=== PATIENT | male | born 1985 | race Caucasian/White ===

== ENCOUNTER 2018-02-20 09:15 | Emergency (ER) | payer OTHER ==
[2018-02-20 09:23] VITALS: BP 125/70; PULSE 73; TEMP 98.3; BMI 32.3
--- NOTE | 2018-02-20 10:19 | PDOC ---
History of Present Illness - General Chief Complaint: Pain, Acute Stated Complaint: RT WRIST PAIN Time Seen by Provider: 02/20/18 09:42 History Source: Patient Exam Limitations: No Limitations - History of Present Illness Initial Comments: 02/20/18 10:28 was moving 1000 pound bale of wire when he felt a snap to his right wrist. States has been painful and swollen since. Able to move fingers, no elbow or forearm injury. States pain is primarily at his wrist joint. Occurred: reports: just prior to arrival, this morning Severity: reports: mild, moderate Pain Location: reports: upper extremity Past History - Past Medical History Allergies/Adverse Reactions: Allergies Allergy/AdvReac Type Severity Reaction Status Date / Time No Known Drug Allergies Allergy Verified 02/20/18 09:18 Home Medications: Ambulatory Orders Ibuprofen 600 mg PO Q6H PRN #30 tablet 02/20/18 COPD: No - Immunization History Immunization Up to Date: Yes - Suicide/Smoking/Psychosocial Hx Smoking History: Never smoked Have you smoked in the past 12 months: No Information on smoking cessation initiated: No Hx Alcohol Use: No Drug/Substance Use Hx: No Substance Use Type: None Review of Systems - Review of Systems Able to Perform ROS?: Yes Is the patient limited Telugu proficient: Yes Constitutional: Yes: Symptoms Reported, See HPI. No: Fever, Malaise HEENTM: Yes: See HPI. No: Symptoms Reported Musculoskeletal: Yes: Symptoms Reported, See HPI, Joint Pain, Joint Swelling, Joint Stiffness Integumentary: Yes: See HPI. No: Symptoms Reported, Bruising Neurological: Yes: See HPI. No: Symptoms reported, Headache, Numbness, Paresthesia All Other Systems: Reviewed and Negative *Physical Exam - Vital Signs Last Vital Signs Temp Pulse Resp BP Pulse Ox 98.3 F 73 18 125/70 98 02/20/18 09:18 02/20/18 09:18 02/20/18 09:18 02/20/18 09:18 02/20/18 09:18 - Physical Exam General Appearance: Yes: Nourished, Appropriately Dressed, Apparent Distress, Mild Distress HEENT: positive: [place], Normal ENT Inspection, TMs Normal, Pharynx Normal Musculoskeletal: positive: Normal Inspection Extremity: positive: Normal Capillary Refill. negative: Normal Inspection, Normal Range of Motion (the range of motion is limited with flexion and extension and side to side to proximally 50% due to pain at primarily lateral aspect of right wrist. 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 Wrist splint placed and sling provided, will follow up with orthopedist this week *DC/Admit/Observation/Transfer Diagnosis at time of Disposition: Right wrist sprain Qualifiers: Encounter type: initial encounter Qualified Code(s): S63.501A - Unspecified sprain of right wrist, initial encounter - Discharge Dispostion Disposition: HOME Condition at time of disposition: Stable Decision to Admit order: No - Prescriptions Prescriptions: Ibuprofen 600 mg PO Q6H PRN #30 tablet PRN Reason: Pain - Referrals Referrals: Dae Olson MD [Staff Physician] - - Patient Instructions Printed Discharge Instructions: DI for Wrist Sprain Additional Instructions: Rest, ice to area on and off for 15 minutes 4-6 times a day Avoid heavy lifting or exercise until pain and swelling is resolved or until further directed Keep area highly elevated to reduce swelling Use splints/Shawn wrap as directed Followup with orthopedist in one to 2 days if not improving, if significantly improved may wait one week for followup with orthopedist May use ibuprofen 2-200 mg tablets every 6 hours as needed for pain - Post Discharge Activity Forms/Work/School Notes: Back to Work
== END 2018-02-20 10:36 | disposition home or self-care (01) ==
LOC: JERFT 09:15
PROC: 2W3CX1Z Immobilization of Right Lower Arm using Splint (ICD-10-PCS; principal; 2018-02-20)
DX: S63.501A Unspecified sprain of right wrist, initial encounter (principal); X58.XXXA Exposure to other specified factors, initial encounter; Y93.89 Activity, other specified; Y92.9 Unspecified place or not applicable; Y99.0 Civilian activity done for income or pay
CPT/HCPCS: 73110-TC-RT-FY; 99281-25